=== PATIENT | female | born 1955 | race Caucasian/White ===

== ENCOUNTER 2022-06-18 11:02 | Emergency (ER) | payer OTHER, MEDICARE ==
--- NOTE | 2022-06-18 21:13 | EKG ---
[facility] [address] [facility] [address] [place] [address] Signed Normal sinus rhythm Nonspecific ST and T wave abnormality Abnormal ECG No previous ECGs available Confirmed by Tirso Lassiter MD () on 06/18/2022 9:13:48 PM Electronically Signed By: TIRSO LASSITER MD 06/18/222112 PATIENT NAME: DANTE MARCUS Electrocardiogram DATE OF : 57 PHYSICIAN: TIRSO LASSITER MD REPORT #: [id number] REPORT IS CONFIDENTIAL AND NOT TO BE RELEASED WITHOUT AUTHORIZATION
== END 2022-06-18 13:10 | disposition home or self-care (01) ==
LOC: ED 11:02
DX: S09.90XA Unspecified injury of head, initial encounter (principal); W01.198A Fall on same level from slipping, tripping and stumbling with subsequent striking against other object, initial encounter; Z88.2 Allergy status to sulfonamides; Z88.1 Allergy status to other antibiotic agents
CPT/HCPCS: 36415; 70450; 71045; 80053; 84484; 85025; 93005; 93010; 99284-25; A9270